=== PATIENT | male | born 1965 | race Native Hawaiian/Other Pacific Islander ===

== ENCOUNTER 2021-05-18 21:50 | Emergency (ER) | payer OTHER ==
[~2021-05-18] VITALS: Ht 175.3 cm; Wt 77.1 kg
[2021-05-19 00:34] VITALS: BP 133/87; TEMP 98.3
== END 2021-05-19 00:34 | disposition home or self-care (01) ==
LOC: ED 21:50
DX: S22.088A Other fracture of T11-T12 vertebra, initial encounter for closed fracture (principal); Y04.2XXA Assault by strike against or bumped into by another person, initial encounter; Y92.89 Other specified places as the place of occurrence of the external cause
CPT/HCPCS: 96372; 99283; J1885